=== PATIENT | female | born 1965 | race Caucasian/White ===

== ENCOUNTER 2019-12-21 08:53 | Inpatient (IN) ==
[2019-12-21] MEDS: TYLENOL 325 MG TAB PO PRN (12:55)
--- NOTE | 2019-12-21 14:43 | RAD ---
HISTORYCOUGH, CONGESTIONSTUDYCHEST, 1 VIEWCOMPARISONNoneFINDINGSHeart size and pulmonary vasculature normal. Lungs are clear with no infiltrate or significant effusion on either side. Bony thorax is unremarkable.IMPRESSIONNo acute cardiopulmonary abnormality is seen on this examElectronically signed by: MILTON CAMARILLO (Dec 21, 2019 14:43:11)
[2019-12-21] MEDS ORDERED: NS 500 ML IV 500 ML IV ONE (14:44)
[2019-12-21 14:45] LABS: BASOPHILS # (AUTO) 0.1 X10^3/uL (0.0-0.1); BASOPHILS % (AUTO) 0.6 % (0.2-1.0); EOSINOPHILS # (AUTO) 0.2 x10^3/uL (0.0-0.2); EOSINOPHILS % (AUTO) 1.3 % (0.9-2.9); HEMATOCRIT 38.7 % (36.0-47.0); LYMPHOCYTES # (AUTO) 1.8 X10^3/uL (1.3-2.9); LYMPHOCYTES % (AUTO) 10.5 % (21.0-51.0); MEAN CORPUSCULAR HEMOGLOBIN 32.3 pg (27.0-34.0); MEAN CORPUSCULAR HGB CONC 33.6 g/dL (33.0-35.0); MEAN CORPUSCULAR VOLUME 96.1 fL (80.0-100.0); MEAN PLATELET VOLUME 6.5 fL (7.4-11.0); MONOCYTES # (AUTO) 0.9 x10^3/uL (0.3-0.8); MONOCYTES % (AUTO) 4.8 % (0.0-13.0); NEUTROPHILS # (AUTO) 14.6 x10^3/uL (2.2-4.8); NEUTROPHILS % (AUTO) 82.8 % (42.0-75.0); PLATELET COUNT 290 X10^3/uL (150.0-450.0); RED BLOOD COUNT 4.03 X10^6/uL (3.5-5.4); RED CELL DISTRIBUTION WIDTH 13.6 % (11.6-16.5); WHITE BLOOD COUNT 17.6 X10^3/uL (3.6-10.0)
[2019-12-21] MEDS: NORCO 7.5/325 MG TAB PO PRN (15:02)
[2019-12-21 15:05] LABS: BAND NEUTROPHILS % 6 % (0-10); PLATELET MORPHOLOGY COMMENT NORMAL (NORMAL)
[2019-12-21 15:07] LABS: ALANINE AMINOTRANSFERASE 34 Units/L (12-78); ALBUMIN 2.2 g/dL (3.4-5.0); ALKALINE PHOSPHATASE 101 Units/L (46-116); ASPARTATE AMINO TRANSFERASE 26 Units/L (15-37); BLOOD UREA NITROGEN 17 mg/dL (7-18); CARBON DIOXIDE 29.8 mmol/L (21-32); CHLORIDE 101 mmol/L (98-107); COR CA(FOR HYPOALB) 10.4 mg/dL (8.5-10.1); COR NA(FOR HYPERGLY) 140 mmol/L (136-145); CREATININE 0.86 mg/dL (0.55-1.02); SODIUM 139 mmol/L (136-145); eGFR NON BLACK RACES > 60 (>60)
[2019-12-21] MEDS: VANCOMYCIN IV *PREMIX 1 G/200 ML BAG 1 G/200 ML PIGGYBACK IV SCH ×2 (15:07→20:44)
[2019-12-21 16:27] VITALS: BMI 46.3
[2019-12-21 19:08] LABS: BILIRUBIN,URINE NEGATIVE (NEGATIVE); BLOOD/HEMOGLOBIN,URINE 1+ (NEGATIVE); GLUCOSE, URINE NEGATIVE (NEGATIVE); KETONES,URINE NEGATIVE (NEGATIVE); LEUKOCYTE ESTERASE ,URINE NEGATIVE (NEGATIVE); NITRITES,URINE NEGATIVE (NEGATIVE); PROTEIN,URINE 1+ (NEGATIVE); UROBILINOGEN,URINE NORMAL (NORMAL)
[2019-12-21 19:17] LABS: APPEARANCE,URINE CLEAR (CLEAR); BACTERIA,URINE TRACE /HPF (NEGATIVE); COLOR,URINE YELLOW (YELLOW); FINE GRANULAR CASTS,URINE RARE /LPF (NEGATIVE); RBC,URINE 0-2 /HPF (0-3); SQUAMOUS EPITHELIAL CELL,UR FEW /HPF (NEGATIVE)
[2019-12-21] MEDS: DESYREL PO PRN (20:40)
[2019-12-21] MEDS: LIPITOR TAB 10 MG PO SCH (20:44)
[2019-12-21] MEDS: SINGULAIR TAB 10 MG PO SCH (20:44)
[2019-12-21] MEDS: BENADRYL CAP/TAB 25 MG PO PRN (20:58)
[2019-12-22 05:29] LABS: BASOPHILS # (AUTO) 0.1 X10^3/uL (0.0-0.1); BASOPHILS % (AUTO) 0.5 % (0.2-1.0); EOSINOPHILS # (AUTO) 0.4 x10^3/uL (0.0-0.2); EOSINOPHILS % (AUTO) 2.3 % (0.9-2.9); HEMATOCRIT 38.4 % (36.0-47.0); HEMOGLOBIN 12.6 g/dL (12.0-16.0); LYMPHOCYTES # (AUTO) 2.1 X10^3/uL (1.3-2.9); LYMPHOCYTES % (AUTO) 13.2 % (21.0-51.0); MEAN CORPUSCULAR HEMOGLOBIN 32.1 pg (27.0-34.0); MEAN CORPUSCULAR HGB CONC 32.9 g/dL (33.0-35.0); MEAN CORPUSCULAR VOLUME 97.7 fL (80.0-100.0); MEAN PLATELET VOLUME 6.9 fL (7.4-11.0); MONOCYTES % (AUTO) 6.3 % (0.0-13.0); NEUTROPHILS # (AUTO) 12.2 x10^3/uL (2.2-4.8); NEUTROPHILS % (AUTO) 77.7 % (42.0-75.0); PLATELET COUNT 304 X10^3/uL (150.0-450.0); RED BLOOD COUNT 3.93 X10^6/uL (3.5-5.4); RED CELL DISTRIBUTION WIDTH 13.5 % (11.6-16.5); WHITE BLOOD COUNT 15.6 X10^3/uL (3.6-10.0)
[2019-12-22 05:45] LABS: ALANINE AMINOTRANSFERASE 36 Units/L (12-78); ALBUMIN 2.2 g/dL (3.4-5.0); ALKALINE PHOSPHATASE 99 Units/L (46-116); ASPARTATE AMINO TRANSFERASE 21 Units/L (15-37); BLOOD UREA NITROGEN 13 mg/dL (7-18); CALCIUM 8.7 mg/dL (8.5-10.1); CARBON DIOXIDE 31.9 mmol/L (21-32); CHLORIDE 103 mmol/L (98-107); COR CA(FOR HYPOALB) 10.1 mg/dL (8.5-10.1); CREATININE 0.63 mg/dL (0.55-1.02); SODIUM 140 mmol/L (136-145); TOTAL PROTEIN 6.9 g/dL (6.4-8.2); eGFR NON BLACK RACES > 60 (>60)
[2019-12-22] MEDS: SYNTHROID 125 mcg TAB PO SCH (06:02)
[2019-12-22 06:19] LABS: PLATELET MORPHOLOGY COMMENT NORMAL (NORMAL)
--- NOTE | 2019-12-22 09:03 | DR.PROGNOT ---
Hospital Progress Notes - Progress Note for Day of: Progress Note Date: 12/22/19 - Chief Complaint Chief Complaint: c/o pain Lt lower extremitiy . swelling and erythema is subsiding slowly . - Past Medical Family Social History Past Med/Fam/Surg Hx: No changes since H&P Allergies: Allergies Penicillins Allergy (Mild, Verified 12/21/19 12:13) shellfish derived Allergy (Verified 12/21/19 12:14) Sulfa (Sulfonamide Antibiotics) [SULFA] Allergy (Verified 12/21/19 12:13) - Review Of Systems ROS: No change since H&P - Vital Signs Vital Signs: Temperature 98.3 F Pulse Rate [Right Brachial] 79 Respiratory Rate 20 Blood Pressure [Right Arm] 134/71 O2 Sat by Pulse Oximetry 96 - Physical Exam Oriented: Normal Eyes: Normal Ear: Normal Nose: Normal Throat: Normal Respiratory: Normal Cardiovascular: Normal : Normal GI:Auscultation: Normal GI:Palpation: Normal GI: Tenderness: Normal Skin: Other (cellulitis LLE is subsiding slowly with several small blisters on the lateral and posterior aspect .) Speech Pattern: Clear, Appropriate - Laboratory and Diagnostics Result Diagrams: 12/22/19 04:39 12/22/19 04:39 Labs: Laboratory WBC 15.6 X10^3/uL (3.6-10.0) H 12/22/19 04:39 RBC 3.93 X10^6/uL (3.5-5.4) 12/22/19 04:39 Hgb 12.6 g/dL (12.0-16.0) 12/22/19 04:39 Hct 38.4 % (36.0-47.0) 12/22/19 04:39 MCV 97.7 fL (80.0-100.0) 12/22/19 04:39 MCH 32.1 pg (27.0-34.0) 12/22/19 04:39 MCHC 32.9 g/dL (33.0-35.0) L 12/22/19 04:39 RDW 13.5 % (11.6-16.5) 12/22/19 04:39 Plt Count 304 X10^3/uL (150.0-450.0) 12/22/19 04:39 Plt Count Comment Adequate (ADEQUATE) 12/22/19 04:39 MPV 6.9 fL (7.4-11.0) L 12/22/19 04:39 Neut % (Auto) 77.7 % (42.0-75.0) H 12/22/19 04:39 Lymph % (Auto) 13.2 % (21.0-51.0) L 12/22/19 04:39 [place] % (Auto) 6.3 % (0.0-13.0) 12/22/19 04:39 Eos % (Auto) 2.3 % (0.9-2.9) 12/22/19 04:39 Baso % (Auto) 0.5 % (0.2-1.0) 12/22/19 04:39 Neut # (Auto) 12.2 x10^3/uL (2.2-4.8) H 12/22/19 04:39 Lymph # (Auto) 2.1 X10^3/uL (1.3-2.9) 12/22/19 04:39 [place] # (Auto) 1.0 x10^3/uL (0.3-0.8) H 12/22/19 04:39 Eos # (Auto) 0.4 x10^3/uL (0.0-0.2) H 12/22/19 04:39 Baso # (Auto) 0.1 X10^3/uL (0.0-0.1) 12/22/19 04:39 Absolute Nucleated RBC 0.1 /100WBC 12/22/19 04:39 Total Counted 100 12/22/19 04:39 Neutrophils % (Manual) 67 % (39-76) 12/22/19 04:39 Band Neutrophils % 6 % (0-10) 12/21/19 14:35 Lymphocytes % (Manual) 23 % (13-43) 12/22/19 04:39 Monocytes % (Manual) 7 % (4-9) 12/22/19 04:39 Eosinophils % (Manual) 3 % (0-6) 12/22/19 04:39 Plt Morphology Comment Normal (NORMAL) 12/22/19 04:39 RBC Morphology Normal (NORMAL) 12/22/19 04:39 Sodium 140 mmol/L (136-145) 12/22/19 04:39 Corrected Sodium TNP 12/22/19 04:39 Potassium 3.7 mmol/L (3.5-5.1) 12/22/19 04:39 Chloride 103 mmol/L (98-107) 12/22/19 04:39 Carbon Dioxide 31.9 mmol/L (21-32) 12/22/19 04:39 BUN 13 mg/dL (7-18) 12/22/19 04:39 Creatinine 0.63 mg/dL (0.55-1.02) 12/22/19 04:39 Est GFR (MDRD) Af Amer > 60 (>60) 12/22/19 04:39 Est GFR (MDRD) Non-Af > 60 (>60) 12/22/19 04:39 Glucose 105 mg/dL (65-99) H 12/22/19 04:39 Calcium 8.7 mg/dL (8.5-10.1) 12/22/19 04:39 Corrected Calcium 10.1 mg/dL (8.5-10.1) 12/22/19 04:39 Total Bilirubin 0.30 mg/dL (0.2-1.0) 12/22/19 04:39 AST 21 Units/L (15-37) 12/22/19 04:39 ALT 36 Units/L (12-78) 12/22/19 04:39 Alkaline Phosphatase 99 Units/L (46-116) 12/22/19 04:39 Total Protein 6.9 g/dL (6.4-8.2) 12/22/19 04:39 Albumin 2.2 g/dL (3.4-5.0) L 12/22/19 04:39 Globulin 4.7 g/dL (2.5-4.5) H 12/22/19 04:39 Albumin/Globulin Ratio 0.5 Ratio (1.1-2.1) L 12/22/19 04:39 TSH 3rd Generation 2.000 uIU/mL (0.358-3.74) 12/21/19 14:35 Specimen Type Clean catch urine 12/21/19 18:56 Urine Color Yellow (YELLOW) 12/21/19 18:56 Urine Appearance Clear (CLEAR) 12/21/19 18:56 Urine pH 5.0 (5.0 - 8.0) 12/21/19 18:56 Ur Specific [place] 1.015 (1.000-1.030) 12/21/19 18:56 Urine Protein 1+ (NEGATIVE) 12/21/19 18:56 Urine Glucose (UA) Negative (NEGATIVE) 12/21/19 18:56 Urine Ketones Negative (NEGATIVE) 12/21/19 18:56 Urine Occult Blood 1+ (NEGATIVE) 12/21/19 18:56 Urine Nitrite Negative (NEGATIVE) 12/21/19 18:56 Urine Bilirubin Negative (NEGATIVE) 12/21/19 18:56 Urine Urobilinogen Normal (NORMAL) 12/21/19 18:56 Ur Leukocyte Esterase Negative (NEGATIVE) 12/21/19 18:56 Urine RBC 0-2 /HPF (0-3) 12/21/19 18:56 Urine WBC 0-2 /HPF (0-5) 12/21/19 18:56 Ur Squamous Epith Cells Few /HPF (NEGATIVE) 12/21/19 18:56 Urine Bacteria Trace /HPF (NEGATIVE) 12/21/19 18:56 Fine Granular Casts Rare /LPF (NEGATIVE) 12/21/19 18:56 Ur Culture Indicated? No/not indicated 12/21/19 18:56 - Assessment and Plan 1: cellulitis LLE with blisters , erythema , edema . obesity . old injury Lt leg .arthritis. hyhpothyroidism . GISSEL . same ATB , leg elevation .
[2019-12-22] MEDS: CALAN SR 240 MG PO SCH (09:48)
[2019-12-22] MEDS: NORCO 7.5/325 MG TAB PO PRN (09:48)
[2019-12-22] MEDS: ZESTRIL TAB 10 MG PO SCH (09:48)
[2019-12-22] MEDS: VANCOMYCIN IV *PREMIX 1 G/200 ML BAG 1 G/200 ML PIGGYBACK IV SCH ×2 (09:49→20:57)
[2019-12-22] MEDS: LOVENOX INJ 40 MG SYR SC SCH (09:49)
[2019-12-22] MEDS: LIPITOR TAB 10 MG PO SCH (20:20)
[2019-12-22] MEDS: TYLENOL 325 MG TAB PO PRN (20:20)
[2019-12-22] MEDS: SINGULAIR TAB 10 MG PO SCH (20:20)
[2019-12-22] MEDS ORDERED: PHARMACY COMMENT IV NR (20:30)
[2019-12-22 20:39] LABS: CREATININE 0.83 mg/dL (0.55-1.02)
[2019-12-22] MEDS: DESYREL PO PRN (20:57)
[2019-12-23 05:24] LABS: BASOPHILS # (AUTO) 0.1 X10^3/uL (0.0-0.1); BASOPHILS % (AUTO) 0.6 % (0.2-1.0); EOSINOPHILS # (AUTO) 0.4 x10^3/uL (0.0-0.2); EOSINOPHILS % (AUTO) 2.7 % (0.9-2.9); HEMATOCRIT 39.2 % (36.0-47.0); HEMOGLOBIN 13.1 g/dL (12.0-16.0); LYMPHOCYTES # (AUTO) 2.1 X10^3/uL (1.3-2.9); LYMPHOCYTES % (AUTO) 16.2 % (21.0-51.0); MEAN CORPUSCULAR HEMOGLOBIN 32.6 pg (27.0-34.0); MEAN CORPUSCULAR HGB CONC 33.3 g/dL (33.0-35.0); MEAN CORPUSCULAR VOLUME 97.7 fL (80.0-100.0); MEAN PLATELET VOLUME 6.8 fL (7.4-11.0); MONOCYTES # (AUTO) 0.7 x10^3/uL (0.3-0.8); MONOCYTES % (AUTO) 5.4 % (0.0-13.0); NEUTROPHILS # (AUTO) 9.9 x10^3/uL (2.2-4.8); NEUTROPHILS % (AUTO) 75.1 % (42.0-75.0); PLATELET COUNT 330 X10^3/uL (150.0-450.0); RED BLOOD COUNT 4.01 X10^6/uL (3.5-5.4); RED CELL DISTRIBUTION WIDTH 13.3 % (11.6-16.5); WHITE BLOOD COUNT 13.2 X10^3/uL (3.6-10.0)
[2019-12-23 05:36] LABS: ALANINE AMINOTRANSFERASE 33 Units/L (12-78); ALBUMIN 2.3 g/dL (3.4-5.0); ALKALINE PHOSPHATASE 90 Units/L (46-116); ASPARTATE AMINO TRANSFERASE 18 Units/L (15-37); BLOOD UREA NITROGEN 10 mg/dL (7-18); CALCIUM 8.8 mg/dL (8.5-10.1); CHLORIDE 105 mmol/L (98-107); COR CA(FOR HYPOALB) 10.2 mg/dL (8.5-10.1); CREATININE 0.58 mg/dL (0.55-1.02); SODIUM 142 mmol/L (136-145); eGFR NON BLACK RACES > 60 (>60)
[2019-12-23 05:46] LABS: PLATELET MORPHOLOGY COMMENT NORMAL (NORMAL)
[2019-12-23] MEDS: SYNTHROID 125 mcg TAB PO SCH (06:19)
[2019-12-23] MEDS: CALAN SR 240 MG PO SCH (09:03)
[2019-12-23] MEDS: LOVENOX INJ 40 MG SYR SC SCH (09:04)
[2019-12-23] MEDS: ZESTRIL TAB 10 MG PO SCH (09:04)
[2019-12-23] MEDS: VANCOMYCIN IV *PREMIX 1 G/200 ML BAG 1 G/200 ML PIGGYBACK IV SCH ×2 (09:05→21:26)
--- NOTE | 2019-12-23 11:46 | DR.PROGNOT ---
Hospital Progress Notes - Progress Note for Day of: Progress Note Date: 12/23/19 - Chief Complaint Chief Complaint: still c/o pain Lt lower extremitiy with multiple bliters on the medial and upper lower leg . WBC 13.2 w shift . BS 110 . no chest pain or palpitation . no fever . - Past Medical Family Social History Past Med/Fam/Surg Hx: No changes since H&P Allergies: Allergies Penicillins Allergy (Mild, Verified 12/21/19 12:13) peanut Allergy (Verified 12/22/19 17:52) shellfish derived Allergy (Verified 12/21/19 12:14) Sulfa (Sulfonamide Antibiotics) [SULFA] Allergy (Verified 12/21/19 12:13) - Review Of Systems ROS: No change since H&P - Vital Signs Vital Signs: Temperature 97.8 F Pulse Rate [Right Brachial] 61 Respiratory Rate 20 Blood Pressure [Right Arm] 157/73 O2 Sat by Pulse Oximetry 94 - Physical Exam Oriented: Normal Eyes: Normal Ear: Normal Nose: Normal Throat: Normal Respiratory: Normal Cardiovascular: Normal : Normal GI:Auscultation: Normal GI:Palpation: Normal GI: Tenderness: Normal Skin: Other (cellulitis LLE is subsiding slowly with several blisters on the medial and posterior aspect .) Speech Pattern: Clear, Appropriate - Laboratory and Diagnostics Result Diagrams: 12/23/19 04:45 12/23/19 04:45 Labs: Laboratory WBC 13.2 X10^3/uL (3.6-10.0) H 12/23/19 04:45 RBC 4.01 X10^6/uL (3.5-5.4) 12/23/19 04:45 Hgb 13.1 g/dL (12.0-16.0) 12/23/19 04:45 Hct 39.2 % (36.0-47.0) 12/23/19 04:45 MCV 97.7 fL (80.0-100.0) 12/23/19 04:45 MCH 32.6 pg (27.0-34.0) 12/23/19 04:45 MCHC 33.3 g/dL (33.0-35.0) 12/23/19 04:45 RDW 13.3 % (11.6-16.5) 12/23/19 04:45 Plt Count 330 X10^3/uL (150.0-450.0) 12/23/19 04:45 Plt Count Comment Adequate (ADEQUATE) 12/23/19 04:45 MPV 6.8 fL (7.4-11.0) L 12/23/19 04:45 Neut % (Auto) 75.1 % (42.0-75.0) H 12/23/19 04:45 Lymph % (Auto) 16.2 % (21.0-51.0) L 12/23/19 04:45 [place] % (Auto) 5.4 % (0.0-13.0) 12/23/19 04:45 Eos % (Auto) 2.7 % (0.9-2.9) 12/23/19 04:45 Baso % (Auto) 0.6 % (0.2-1.0) 12/23/19 04:45 Neut # (Auto) 9.9 x10^3/uL (2.2-4.8) H 12/23/19 04:45 Lymph # (Auto) 2.1 X10^3/uL (1.3-2.9) 12/23/19 04:45 [place] # (Auto) 0.7 x10^3/uL (0.3-0.8) 12/23/19 04:45 Eos # (Auto) 0.4 x10^3/uL (0.0-0.2) H 12/23/19 04:45 Baso # (Auto) 0.1 X10^3/uL (0.0-0.1) 12/23/19 04:45 Absolute Nucleated RBC 0.1 /100WBC 12/23/19 04:45 Total Counted 100 12/23/19 04:45 Neutrophils % (Manual) 72 % (39-76) 12/23/19 04:45 Band Neutrophils % 6 % (0-10) 12/21/19 14:35 Lymphocytes % (Manual) 23 % (13-43) 12/23/19 04:45 Monocytes % (Manual) 5 % (4-9) 12/23/19 04:45 Eosinophils % (Manual) 3 % (0-6) 12/22/19 04:39 Plt Morphology Comment Normal (NORMAL) 12/23/19 04:45 RBC Morphology Normal (NORMAL) 12/23/19 04:45 Sodium 142 mmol/L (136-145) 12/23/19 04:45 Corrected Sodium TNP 12/23/19 04:45 Potassium 3.8 mmol/L (3.5-5.1) 12/23/19 04:45 Chloride 105 mmol/L (98-107) 12/23/19 04:45 Carbon Dioxide 31.0 mmol/L (21-32) 12/23/19 04:45 BUN 10 mg/dL (7-18) 12/23/19 04:45 Creatinine 0.58 mg/dL (0.55-1.02) 12/23/19 04:45 Est GFR (MDRD) Af Amer > 60 (>60) 12/23/19 04:45 Est GFR (MDRD) Non-Af > 60 (>60) 12/23/19 04:45 Glucose 110 mg/dL (65-99) H 12/23/19 04:45 Calcium 8.8 mg/dL (8.5-10.1) 12/23/19 04:45 Corrected Calcium 10.2 mg/dL (8.5-10.1) H 12/23/19 04:45 Total Bilirubin 0.30 mg/dL (0.2-1.0) 12/23/19 04:45 AST 18 Units/L (15-37) 12/23/19 04:45 ALT 33 Units/L (12-78) 12/23/19 04:45 Alkaline Phosphatase 90 Units/L (46-116) 12/23/19 04:45 Total Protein 7.0 g/dL (6.4-8.2) 12/23/19 04:45 Albumin 2.3 g/dL (3.4-5.0) L 12/23/19 04:45 Globulin 4.7 g/dL (2.5-4.5) H 12/23/19 04:45 Albumin/Globulin Ratio 0.5 Ratio (1.1-2.1) L 12/23/19 04:45 TSH 3rd Generation 2.000 uIU/mL (0.358-3.74) 12/21/19 14:35 Specimen Type Clean catch urine 12/21/19 18:56 Urine Color Yellow (YELLOW) 12/21/19 18:56 Urine Appearance Clear (CLEAR) 12/21/19 18:56 Urine pH 5.0 (5.0 - 8.0) 12/21/19 18:56 Ur Specific [place] 1.015 (1.000-1.030) 12/21/19 18:56 Urine Protein 1+ (NEGATIVE) 12/21/19 18:56 Urine Glucose (UA) Negative (NEGATIVE) 12/21/19 18:56 Urine Ketones Negative (NEGATIVE) 12/21/19 18:56 Urine Occult Blood 1+ (NEGATIVE) 12/21/19 18:56 Urine Nitrite Negative (NEGATIVE) 12/21/19 18:56 Urine Bilirubin Negative (NEGATIVE) 12/21/19 18:56 Urine Urobilinogen Normal (NORMAL) 12/21/19 18:56 Ur Leukocyte Esterase Negative (NEGATIVE) 12/21/19 18:56 Urine RBC 0-2 /HPF (0-3) 12/21/19 18:56 Urine WBC 0-2 /HPF (0-5) 12/21/19 18:56 Ur Squamous Epith Cells Few /HPF (NEGATIVE) 12/21/19 18:56 Urine Bacteria Trace /HPF (NEGATIVE) 12/21/19 18:56 Fine Granular Casts Rare /LPF (NEGATIVE) 12/21/19 18:56 Ur Culture Indicated? No/not indicated 12/21/19 18:56 Vancomycin Trough 14.0 ug/mL (15-20) L 12/22/19 20:08 - Assessment and Plan 1: cellulitis LLE with blisters , erythema , edema . obesity . old injury Lt leg .arthritis. hyhpothyroidism . GISSEL . same ATB , leg elevation . may shower and ambulate .
[2019-12-23] MEDS: NORCO 7.5/325 MG TAB PO PRN ×2 (12:45→22:57)
[2019-12-23] MEDS: BENADRYL CAP/TAB 25 MG PO PRN (12:45)
[2019-12-23] MEDS: LIPITOR TAB 10 MG PO SCH (21:26)
[2019-12-23] MEDS: SINGULAIR TAB 10 MG PO SCH (21:26)
[2019-12-23] MEDS: DESYREL PO PRN (21:27)
[2019-12-24 05:16] LABS: BASOPHILS # (AUTO) 0.1 X10^3/uL (0.0-0.1); BASOPHILS % (AUTO) 0.7 % (0.2-1.0); EOSINOPHILS # (AUTO) 0.3 x10^3/uL (0.0-0.2); EOSINOPHILS % (AUTO) 2.1 % (0.9-2.9); HEMATOCRIT 38.1 % (36.0-47.0); HEMOGLOBIN 12.5 g/dL (12.0-16.0); LYMPHOCYTES # (AUTO) 1.9 X10^3/uL (1.3-2.9); LYMPHOCYTES % (AUTO) 15.9 % (21.0-51.0); MEAN CORPUSCULAR HEMOGLOBIN 32.1 pg (27.0-34.0); MEAN CORPUSCULAR HGB CONC 32.8 g/dL (33.0-35.0); MEAN CORPUSCULAR VOLUME 97.8 fL (80.0-100.0); MEAN PLATELET VOLUME 6.6 fL (7.4-11.0); MONOCYTES # (AUTO) 0.8 x10^3/uL (0.3-0.8); MONOCYTES % (AUTO) 6.6 % (0.0-13.0); NEUTROPHILS # (AUTO) 8.9 x10^3/uL (2.2-4.8); NEUTROPHILS % (AUTO) 74.7 % (42.0-75.0); PLATELET COUNT 336 X10^3/uL (150.0-450.0); RED CELL DISTRIBUTION WIDTH 13.5 % (11.6-16.5)
[2019-12-24 05:30] LABS: ALANINE AMINOTRANSFERASE 26 Units/L (12-78); ALBUMIN 2.1 g/dL (3.4-5.0); ALKALINE PHOSPHATASE 79 Units/L (46-116); ASPARTATE AMINO TRANSFERASE 17 Units/L (15-37); BLOOD UREA NITROGEN 11 mg/dL (7-18); CALCIUM 8.5 mg/dL (8.5-10.1); CARBON DIOXIDE 31.2 mmol/L (21-32); CHLORIDE 106 mmol/L (98-107); CREATININE 0.69 mg/dL (0.55-1.02); SODIUM 142 mmol/L (136-145); TOTAL PROTEIN 6.6 g/dL (6.4-8.2); eGFR NON BLACK RACES > 60 (>60)
[2019-12-24] MEDS: SYNTHROID 125 mcg TAB PO SCH (05:37)
[2019-12-24 05:39] LABS: BAND NEUTROPHILS % 4 % (0-10); PLATELET MORPHOLOGY COMMENT NORMAL (NORMAL)
[2019-12-24 08:58] LABS: CREATININE 0.74 mg/dL (0.55-1.02); VANCOMYCIN,TROUGH 15.4 ug/mL (15-20)
[2019-12-24] MEDS: VANCOMYCIN IV *PREMIX 1 G/200 ML BAG 1 G/200 ML PIGGYBACK IV SCH ×2 (09:34→21:21)
[2019-12-24] MEDS: LOVENOX INJ 40 MG SYR SC SCH (09:34)
[2019-12-24] MEDS: CALAN SR 240 MG PO SCH (09:34)
[2019-12-24] MEDS: ZESTRIL TAB 10 MG PO SCH (09:35)
[2019-12-24] MEDS: TYLENOL 325 MG TAB PO PRN (09:40)
[2019-12-24] MEDS ORDERED: SILVADENE TOP SCH (13:00)
--- NOTE | 2019-12-24 13:22 | VAS ---
HISTORY:Cellulitis, blistersStudy: Venous DopplerComparison:NoneTECHNIQUE: Multiple porter scale and color flow Doppler images of the deep venous system were obtained of the bilateral lower extremitiesFINDINGS:There is normal respiratory phasicity, compression and augmentation of the extremity veins without evidence of acute DVT .IMPRESSION:1. Negative for DVT.Electronically signed by: REJI NORIEGA (Dec 24, 2019 13:20:49)
[2019-12-24] MEDS: BACTROBAN TOPICAL OINT TOP SCH ×2 (14:59→21:20)
--- NOTE | 2019-12-24 16:09 | DR.PROGNOT ---
Hospital Progress Notes - Progress Note for Day of: Progress Note Date: 12/24/19 - Chief Complaint Chief Complaint: having drainage from several blisters on the posterior and lateral Lt leg. still c/o pain when getting OOB and ambulating . W@BC 12. CMP normal ..TSH 2. temp. 97.9 - Past Medical Family Social History Past Med/Fam/Surg Hx: No changes since H&P Allergies: Allergies Penicillins Allergy (Mild, Verified 12/21/19 12:13) peanut Allergy (Verified 12/22/19 17:52) shellfish derived Allergy (Verified 12/21/19 12:14) Sulfa (Sulfonamide Antibiotics) [SULFA] Allergy (Verified 12/21/19 12:13) - Review Of Systems ROS: No change since H&P - Vital Signs Vital Signs: Temperature 97.9 F Pulse Rate [Right Brachial] 62 Respiratory Rate 20 Blood Pressure [Right Arm] 127/70 O2 Sat by Pulse Oximetry 95 - Physical Exam Oriented: Normal Eyes: Normal Ear: Normal Nose: Normal Throat: Normal Respiratory: Normal Cardiovascular: Normal : Normal GI:Auscultation: Normal GI:Palpation: Normal GI: Tenderness: Normal Skin: Other (Lt leg with open blisters posterior and lateral aspect and associated erythema around the blisters and foot ) Speech Pattern: Clear, Appropriate - Laboratory and Diagnostics Result Diagrams: 12/24/19 04:30 12/24/19 08:39 Labs: 12/23/19 22:46 Leg - Right Gram Stain - Final Laboratory WBC 12.0 X10^3/uL (3.6-10.0) H 12/24/19 04:30 RBC 3.90 X10^6/uL (3.5-5.4) 12/24/19 04:30 Hgb 12.5 g/dL (12.0-16.0) 12/24/19 04:30 Hct 38.1 % (36.0-47.0) 12/24/19 04:30 MCV 97.8 fL (80.0-100.0) 12/24/19 04:30 MCH 32.1 pg (27.0-34.0) 12/24/19 04:30 MCHC 32.8 g/dL (33.0-35.0) L 12/24/19 04:30 RDW 13.5 % (11.6-16.5) 12/24/19 04:30 Plt Count 336 X10^3/uL (150.0-450.0) 12/24/19 04:30 Plt Count Comment Adequate (ADEQUATE) 12/24/19 04:30 MPV 6.6 fL (7.4-11.0) L 12/24/19 04:30 Neut % (Auto) 74.7 % (42.0-75.0) 12/24/19 04:30 Lymph % (Auto) 15.9 % (21.0-51.0) L 12/24/19 04:30 [place] % (Auto) 6.6 % (0.0-13.0) 12/24/19 04:30 Eos % (Auto) 2.1 % (0.9-2.9) 12/24/19 04:30 Baso % (Auto) 0.7 % (0.2-1.0) 12/24/19 04:30 Neut # (Auto) 8.9 x10^3/uL (2.2-4.8) H 12/24/19 04:30 Lymph # (Auto) 1.9 X10^3/uL (1.3-2.9) 12/24/19 04:30 [place] # (Auto) 0.8 x10^3/uL (0.3-0.8) 12/24/19 04:30 Eos # (Auto) 0.3 x10^3/uL (0.0-0.2) H 12/24/19 04:30 Baso # (Auto) 0.1 X10^3/uL (0.0-0.1) 12/24/19 04:30 Absolute Nucleated RBC 0.0 /100WBC 12/24/19 04:30 Total Counted 100 12/24/19 04:30 Neutrophils % (Manual) 70 % (39-76) 12/24/19 04:30 Band Neutrophils % 4 % (0-10) 12/24/19 04:30 Lymphocytes % (Manual) 18 % (13-43) 12/24/19 04:30 Monocytes % (Manual) 6 % (4-9) 12/24/19 04:30 Eosinophils % (Manual) 2 % (0-6) 12/24/19 04:30 Plt Morphology Comment Normal (NORMAL) 12/24/19 04:30 RBC Morphology Normal (NORMAL) 12/24/19 04:30 Sodium 142 mmol/L (136-145) 12/24/19 04:30 Corrected Sodium TNP 12/24/19 04:30 Potassium 4.0 mmol/L (3.5-5.1) 12/24/19 04:30 Chloride 106 mmol/L (98-107) 12/24/19 04:30 Carbon Dioxide 31.2 mmol/L (21-32) 12/24/19 04:30 BUN 11 mg/dL (7-18) 12/24/19 04:30 Creatinine 0.74 mg/dL (0.55-1.02) 12/24/19 08:39 Est GFR (MDRD) Af Amer > 60 (>60) 12/24/19 04:30 Est GFR (MDRD) Non-Af > 60 (>60) 12/24/19 04:30 Glucose 99 mg/dL (65-99) 12/24/19 04:30 Calcium 8.5 mg/dL (8.5-10.1) 12/24/19 04:30 Corrected Calcium 10.0 mg/dL (8.5-10.1) 12/24/19 04:30 Total Bilirubin 0.20 mg/dL (0.2-1.0) 12/24/19 04:30 AST 17 Units/L (15-37) 12/24/19 04:30 ALT 26 Units/L (12-78) 12/24/19 04:30 Alkaline Phosphatase 79 Units/L (46-116) 12/24/19 04:30 Total Protein 6.6 g/dL (6.4-8.2) 12/24/19 04:30 Albumin 2.1 g/dL (3.4-5.0) L 12/24/19 04:30 Globulin 4.5 g/dL (2.5-4.5) 12/24/19 04:30 Albumin/Globulin Ratio 0.5 Ratio (1.1-2.1) L 12/24/19 04:30 TSH 3rd Generation 2.000 uIU/mL (0.358-3.74) 12/21/19 14:35 Specimen Type Clean catch urine 12/21/19 18:56 Urine Color Yellow (YELLOW) 12/21/19 18:56 Urine Appearance Clear (CLEAR) 12/21/19 18:56 Urine pH 5.0 (5.0 - 8.0) 12/21/19 18:56 Ur Specific [place] 1.015 (1.000-1.030) 12/21/19 18:56 Urine Protein 1+ (NEGATIVE) 12/21/19 18:56 Urine Glucose (UA) Negative (NEGATIVE) 12/21/19 18:56 Urine Ketones Negative (NEGATIVE) 12/21/19 18:56 Urine Occult Blood 1+ (NEGATIVE) 12/21/19 18:56 Urine Nitrite Negative (NEGATIVE) 12/21/19 18:56 Urine Bilirubin Negative (NEGATIVE) 12/21/19 18:56 Urine Urobilinogen Normal (NORMAL) 12/21/19 18:56 Ur Leukocyte Esterase Negative (NEGATIVE) 12/21/19 18:56 Urine RBC 0-2 /HPF (0-3) 12/21/19 18:56 Urine WBC 0-2 /HPF (0-5) 12/21/19 18:56 Ur Squamous Epith Cells Few /HPF (NEGATIVE) 12/21/19 18:56 Urine Bacteria Trace /HPF (NEGATIVE) 12/21/19 18:56 Fine Granular Casts Rare /LPF (NEGATIVE) 12/21/19 18:56 Ur Culture Indicated? No/not indicated 12/21/19 18:56 Vancomycin Trough 15.4 ug/mL (15-20) 12/24/19 08:39 - Assessment and Plan 1: cellulitis LLE with blisters , erythema and edema .. arthritic Lt ankle with deformity. hyhpothyroidism . obesity and GISSEL . same ATB , leg elevation . may shower and ambulate .
[2019-12-24] MEDS: NORCO 7.5/325 MG TAB PO PRN (16:26)
[2019-12-24] MEDS: BENADRYL CAP/TAB 25 MG PO PRN (17:19)
[2019-12-24] MEDS: SINGULAIR TAB 10 MG PO SCH (21:21)
[2019-12-24] MEDS: LIPITOR TAB 10 MG PO SCH (21:21)
[2019-12-24] MEDS: DESYREL PO PRN (21:22)
[2019-12-25 05:00] LABS: BASOPHILS # (AUTO) 0.1 X10^3/uL (0.0-0.1); BASOPHILS % (AUTO) 0.6 % (0.2-1.0); EOSINOPHILS # (AUTO) 0.2 x10^3/uL (0.0-0.2); EOSINOPHILS % (AUTO) 1.6 % (0.9-2.9); HEMATOCRIT 38.9 % (36.0-47.0); LYMPHOCYTES # (AUTO) 1.5 X10^3/uL (1.3-2.9); LYMPHOCYTES % (AUTO) 12.9 % (21.0-51.0); MEAN CORPUSCULAR HEMOGLOBIN 32.4 pg (27.0-34.0); MEAN CORPUSCULAR HGB CONC 33.4 g/dL (33.0-35.0); MEAN CORPUSCULAR VOLUME 97.1 fL (80.0-100.0); MONOCYTES # (AUTO) 0.7 x10^3/uL (0.3-0.8); MONOCYTES % (AUTO) 6.1 % (0.0-13.0); NEUTROPHILS # (AUTO) 9.1 x10^3/uL (2.2-4.8); NEUTROPHILS % (AUTO) 78.8 % (42.0-75.0); PLATELET COUNT 329 X10^3/uL (150.0-450.0); RED CELL DISTRIBUTION WIDTH 13.5 % (11.6-16.5); WHITE BLOOD COUNT 11.5 X10^3/uL (3.6-10.0)
[2019-12-25 05:26] LABS: ALANINE AMINOTRANSFERASE 47 Units/L (12-78); ALBUMIN 2.4 g/dL (3.4-5.0); ALKALINE PHOSPHATASE 83 Units/L (46-116); ASPARTATE AMINO TRANSFERASE 42 Units/L (15-37); BLOOD UREA NITROGEN 13 mg/dL (7-18); CALCIUM 8.8 mg/dL (8.5-10.1); CARBON DIOXIDE 31.7 mmol/L (21-32); CHLORIDE 106 mmol/L (98-107); COR CA(FOR HYPOALB) 10.1 mg/dL (8.5-10.1); CREATININE 0.73 mg/dL (0.55-1.02); SODIUM 141 mmol/L (136-145); TSH (3RD GENERATION) 6.042 uIU/mL (0.358-3.74); eGFR NON BLACK RACES > 60 (>60)
[2019-12-25] MEDS: SYNTHROID 125 mcg TAB PO SCH (05:43)
[2019-12-25 06:17] LABS: PLATELET MORPHOLOGY COMMENT NORMAL (NORMAL)
[2019-12-25] MEDS: CALAN SR 240 MG PO SCH (08:37)
[2019-12-25] MEDS: BACTROBAN TOPICAL OINT TOP SCH ×2 (08:37→21:36)
[2019-12-25] MEDS: VANCOMYCIN IV *PREMIX 1 G/200 ML BAG 1 G/200 ML PIGGYBACK IV SCH ×2 (08:38→21:36)
[2019-12-25] MEDS: ZESTRIL TAB 10 MG PO SCH (08:38)
[2019-12-25] MEDS: LOVENOX INJ 40 MG SYR SC SCH (10:03)
--- NOTE | 2019-12-25 10:59 | DR.PROGNOT ---
Hospital Progress Notes - Progress Note for Day of: Progress Note Date: 12/25/19 - Chief Complaint Chief Complaint: having serous drainage from several blisters on the posterior and lateral LT leg. still c/o pain and pressure feeling .. though the erythema started to localize around the blisters . WBC 11.5.. TSH 6.04 .. Vanco trough 14. Doppler was negative for DVT. cultures are negative so far . temp 98 - Past Medical Family Social History Past Med/Fam/Surg Hx: No changes since H&P Allergies: Allergies Penicillins Allergy (Mild, Verified 12/21/19 12:13) peanut Allergy (Verified 12/22/19 17:52) shellfish derived Allergy (Verified 12/21/19 12:14) Sulfa (Sulfonamide Antibiotics) [SULFA] Allergy (Verified 12/21/19 12:13) - Review Of Systems ROS: No change since H&P - Vital Signs Vital Signs: Temperature 98.4 F Pulse Rate [Right Brachial] 64 Respiratory Rate 20 Blood Pressure [Right Arm] 174/87 O2 Sat by Pulse Oximetry 97 - Physical Exam Oriented: Normal Eyes: Normal Ear: Normal Nose: Normal Throat: Normal Respiratory: Normal Cardiovascular: Normal : Normal GI:Auscultation: Normal GI:Palpation: Normal GI: Tenderness: Normal Skin: Other (Lt leg with open blisters posterior and lateral aspect and associated erythema around the blisters and foot ) Speech Pattern: Clear, Appropriate - Laboratory and Diagnostics Result Diagrams: 12/25/19 04:36 12/25/19 04:36 Labs: 12/23/19 22:46 Leg - Right Gram Stain - Final Laboratory WBC 11.5 X10^3/uL (3.6-10.0) H 12/25/19 04:36 RBC 4.00 X10^6/uL (3.5-5.4) 12/25/19 04:36 Hgb 13.0 g/dL (12.0-16.0) 12/25/19 04:36 Hct 38.9 % (36.0-47.0) 12/25/19 04:36 MCV 97.1 fL (80.0-100.0) 12/25/19 04:36 MCH 32.4 pg (27.0-34.0) 12/25/19 04:36 MCHC 33.4 g/dL (33.0-35.0) 12/25/19 04:36 RDW 13.5 % (11.6-16.5) 12/25/19 04:36 Plt Count 329 X10^3/uL (150.0-450.0) 12/25/19 04:36 Plt Count Comment Adequate (ADEQUATE) 12/25/19 04:36 MPV 6.0 fL (7.4-11.0) L 12/25/19 04:36 Neut % (Auto) 78.8 % (42.0-75.0) H 12/25/19 04:36 Lymph % (Auto) 12.9 % (21.0-51.0) L 12/25/19 04:36 [place] % (Auto) 6.1 % (0.0-13.0) 12/25/19 04:36 Eos % (Auto) 1.6 % (0.9-2.9) 12/25/19 04:36 Baso % (Auto) 0.6 % (0.2-1.0) 12/25/19 04:36 Neut # (Auto) 9.1 x10^3/uL (2.2-4.8) H 12/25/19 04:36 Lymph # (Auto) 1.5 X10^3/uL (1.3-2.9) 12/25/19 04:36 [place] # (Auto) 0.7 x10^3/uL (0.3-0.8) 12/25/19 04:36 Eos # (Auto) 0.2 x10^3/uL (0.0-0.2) 12/25/19 04:36 Baso # (Auto) 0.1 X10^3/uL (0.0-0.1) 12/25/19 04:36 Absolute Nucleated RBC 0.0 /100WBC 12/25/19 04:36 Total Counted 100 12/25/19 04:36 Neutrophils % (Manual) 75 % (39-76) 12/25/19 04:36 Band Neutrophils % 4 % (0-10) 12/24/19 04:30 Lymphocytes % (Manual) 19 % (13-43) 12/25/19 04:36 Monocytes % (Manual) 4 % (4-9) 12/25/19 04:36 Eosinophils % (Manual) 2 % (0-6) 12/25/19 04:36 Plt Morphology Comment Normal (NORMAL) 12/25/19 04:36 RBC Morphology Normal (NORMAL) 12/25/19 04:36 Sodium 141 mmol/L (136-145) 12/25/19 04:36 Corrected Sodium TNP 12/25/19 04:36 Potassium 4.7 mmol/L (3.5-5.1) 12/25/19 04:36 Chloride 106 mmol/L (98-107) 12/25/19 04:36 Carbon Dioxide 31.7 mmol/L (21-32) 12/25/19 04:36 BUN 13 mg/dL (7-18) 12/25/19 04:36 Creatinine 0.73 mg/dL (0.55-1.02) 12/25/19 04:36 Est GFR (MDRD) Af Amer > 60 (>60) 12/25/19 04:36 Est GFR (MDRD) Non-Af > 60 (>60) 12/25/19 04:36 Glucose 110 mg/dL (65-99) H 12/25/19 04:36 Calcium 8.8 mg/dL (8.5-10.1) 12/25/19 04:36 Corrected Calcium 10.1 mg/dL (8.5-10.1) 12/25/19 04:36 Total Bilirubin 0.20 mg/dL (0.2-1.0) 12/25/19 04:36 AST 42 Units/L (15-37) H 12/25/19 04:36 ALT 47 Units/L (12-78) 12/25/19 04:36 Alkaline Phosphatase 83 Units/L (46-116) 12/25/19 04:36 Total Protein 7.0 g/dL (6.4-8.2) 12/25/19 04:36 Albumin 2.4 g/dL (3.4-5.0) L 12/25/19 04:36 Globulin 4.6 g/dL (2.5-4.5) H 12/25/19 04:36 Albumin/Globulin Ratio 0.5 Ratio (1.1-2.1) L 12/25/19 04:36 TSH 3rd Generation 6.042 uIU/mL (0.358-3.74) H 12/25/19 04:36 Specimen Type Clean catch urine 12/21/19 18:56 Urine Color Yellow (YELLOW) 12/21/19 18:56 Urine Appearance Clear (CLEAR) 12/21/19 18:56 Urine pH 5.0 (5.0 - 8.0) 12/21/19 18:56 Ur Specific [place] 1.015 (1.000-1.030) 12/21/19 18:56 Urine Protein 1+ (NEGATIVE) 12/21/19 18:56 Urine Glucose (UA) Negative (NEGATIVE) 12/21/19 18:56 Urine Ketones Negative (NEGATIVE) 12/21/19 18:56 Urine Occult Blood 1+ (NEGATIVE) 12/21/19 18:56 Urine Nitrite Negative (NEGATIVE) 12/21/19 18:56 Urine Bilirubin Negative (NEGATIVE) 12/21/19 18:56 Urine Urobilinogen Normal (NORMAL) 12/21/19 18:56 Ur Leukocyte Esterase Negative (NEGATIVE) 12/21/19 18:56 Urine RBC 0-2 /HPF (0-3) 12/21/19 18:56 Urine WBC 0-2 /HPF (0-5) 12/21/19 18:56 Ur Squamous Epith Cells Few /HPF (NEGATIVE) 12/21/19 18:56 Urine Bacteria Trace /HPF (NEGATIVE) 12/21/19 18:56 Fine Granular Casts Rare /LPF (NEGATIVE) 12/21/19 18:56 Ur Culture Indicated? No/not indicated 12/21/19 18:56 Vancomycin Trough 15.4 ug/mL (15-20) 12/24/19 08:39 - Assessment and Plan 1: cellulitis LLE with blisters , erythema and edema .. 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 hyhpothyroidism . obesity and GISSEL . same local care and ATB . leg elevation . DVT prophylaxis. may shower and ambulate .
[2019-12-25] MEDS ORDERED: HYDROCORTISONE CRM 1% TOP PRN (13:48)
[2019-12-25] MEDS: NORCO 7.5/325 MG TAB PO PRN (13:57)
[2019-12-25 21:15] LABS: CREATININE 0.8 mg/dL (0.55-1.02); VANCOMYCIN,TROUGH 14.7 ug/mL (15-20)
[2019-12-25] MEDS: SINGULAIR TAB 10 MG PO SCH (21:36)
[2019-12-25] MEDS: LIPITOR TAB 10 MG PO SCH (21:36)
[2019-12-25] MEDS: DESYREL PO PRN (21:36)
[2019-12-26 05:31] LABS: BASOPHILS % (AUTO) 0.4 % (0.2-1.0); EOSINOPHILS # (AUTO) 0.2 x10^3/uL (0.0-0.2); EOSINOPHILS % (AUTO) 1.5 % (0.9-2.9); HEMATOCRIT 37.8 % (36.0-47.0); HEMOGLOBIN 12.3 g/dL (12.0-16.0); LYMPHOCYTES # (AUTO) 1.6 X10^3/uL (1.3-2.9); LYMPHOCYTES % (AUTO) 14.1 % (21.0-51.0); MEAN CORPUSCULAR HEMOGLOBIN 31.9 pg (27.0-34.0); MEAN CORPUSCULAR HGB CONC 32.6 g/dL (33.0-35.0); MEAN CORPUSCULAR VOLUME 97.9 fL (80.0-100.0); MEAN PLATELET VOLUME 6.5 fL (7.4-11.0); MONOCYTES # (AUTO) 0.7 x10^3/uL (0.3-0.8); MONOCYTES % (AUTO) 5.9 % (0.0-13.0); NEUTROPHILS % (AUTO) 78.1 % (42.0-75.0); PLATELET COUNT 335 X10^3/uL (150.0-450.0); RED BLOOD COUNT 3.86 X10^6/uL (3.5-5.4); RED CELL DISTRIBUTION WIDTH 13.2 % (11.6-16.5); WHITE BLOOD COUNT 11.5 X10^3/uL (3.6-10.0)
[2019-12-26] MEDS: SYNTHROID 125 mcg TAB PO SCH (05:34)
[2019-12-26 05:55] LABS: ALANINE AMINOTRANSFERASE 66 Units/L (12-78); ALBUMIN 2.3 g/dL (3.4-5.0); ALKALINE PHOSPHATASE 78 Units/L (46-116); ASPARTATE AMINO TRANSFERASE 54 Units/L (15-37); BLOOD UREA NITROGEN 11 mg/dL (7-18); CALCIUM 8.7 mg/dL (8.5-10.1); CARBON DIOXIDE 29.5 mmol/L (21-32); CHLORIDE 106 mmol/L (98-107); COR CA(FOR HYPOALB) 10.1 mg/dL (8.5-10.1); CREATININE 0.61 mg/dL (0.55-1.02); SODIUM 141 mmol/L (136-145); TOTAL PROTEIN 6.7 g/dL (6.4-8.2); eGFR NON BLACK RACES > 60 (>60)
[2019-12-26 06:31] LABS: PLATELET MORPHOLOGY COMMENT NORMAL (NORMAL)
[2019-12-26] MEDS: VANCOMYCIN IV *PREMIX 1 G/200 ML BAG 1 G/200 ML PIGGYBACK IV SCH ×2 (09:00→21:16)
[2019-12-26] MEDS: BACTROBAN TOPICAL OINT TOP SCH ×2 (09:00→21:15)
[2019-12-26] MEDS: CALAN SR 240 MG PO SCH (09:00)
[2019-12-26] MEDS: LOVENOX INJ 40 MG SYR SC SCH (09:01)
[2019-12-26] MEDS: ZESTRIL TAB 10 MG PO SCH (09:02)
[2019-12-26] MEDS: LIPITOR TAB 10 MG PO SCH (21:16)
[2019-12-26] MEDS: SINGULAIR TAB 10 MG PO SCH (21:16)
[2019-12-26] MEDS: DESYREL PO PRN (21:16)
[2019-12-26] MEDS: NORCO 7.5/325 MG TAB PO PRN (21:17)
[2019-12-26] MEDS ORDERED: NS 500 ML IV 500 ML IV PRN (23:30)
[2019-12-26] MEDS ORDERED: NS 500 ML IV 500 ML IV ONE (23:32)
[2019-12-27 05:07] LABS: BASOPHILS # (AUTO) 0.1 X10^3/uL (0.0-0.1); BASOPHILS % (AUTO) 0.6 % (0.2-1.0); EOSINOPHILS # (AUTO) 0.1 x10^3/uL (0.0-0.2); EOSINOPHILS % (AUTO) 1.4 % (0.9-2.9); HEMATOCRIT 37.7 % (36.0-47.0); HEMOGLOBIN 12.4 g/dL (12.0-16.0); LYMPHOCYTES # (AUTO) 1.7 X10^3/uL (1.3-2.9); LYMPHOCYTES % (AUTO) 16.9 % (21.0-51.0); MEAN CORPUSCULAR HEMOGLOBIN 32.3 pg (27.0-34.0); MEAN CORPUSCULAR HGB CONC 32.9 g/dL (33.0-35.0); MEAN PLATELET VOLUME 6.5 fL (7.4-11.0); MONOCYTES # (AUTO) 0.7 x10^3/uL (0.3-0.8); MONOCYTES % (AUTO) 6.9 % (0.0-13.0); NEUTROPHILS # (AUTO) 7.4 x10^3/uL (2.2-4.8); NEUTROPHILS % (AUTO) 74.2 % (42.0-75.0); PLATELET COUNT 322 X10^3/uL (150.0-450.0); RED BLOOD COUNT 3.85 X10^6/uL (3.5-5.4); RED CELL DISTRIBUTION WIDTH 13.2 % (11.6-16.5)
[2019-12-27 05:17] LABS: ALANINE AMINOTRANSFERASE 93 Units/L (12-78); ALBUMIN 2.4 g/dL (3.4-5.0); ALKALINE PHOSPHATASE 78 Units/L (46-116); ASPARTATE AMINO TRANSFERASE 70 Units/L (15-37); BLOOD UREA NITROGEN 11 mg/dL (7-18); CALCIUM 8.8 mg/dL (8.5-10.1); CARBON DIOXIDE 31.5 mmol/L (21-32); CHLORIDE 106 mmol/L (98-107); COR CA(FOR HYPOALB) 10.1 mg/dL (8.5-10.1); CREATININE 0.71 mg/dL (0.55-1.02); SODIUM 142 mmol/L (136-145); TOTAL PROTEIN 6.9 g/dL (6.4-8.2); eGFR NON BLACK RACES > 60 (>60)
[2019-12-27] MEDS: SYNTHROID 125 mcg TAB PO SCH (06:09)
[2019-12-27 06:32] LABS: PLATELET MORPHOLOGY COMMENT NORMAL (NORMAL)
[2019-12-27] MEDS: CALAN SR 240 MG PO SCH (08:27)
[2019-12-27] MEDS: LOVENOX INJ 40 MG SYR SC SCH (08:27)
[2019-12-27] MEDS: BACTROBAN TOPICAL OINT TOP SCH ×2 (08:27→21:37)
[2019-12-27] MEDS: ZESTRIL TAB 10 MG PO SCH (08:28)
[2019-12-27] MEDS: VANCOMYCIN IV *PREMIX 1 G/200 ML BAG 1 G/200 ML PIGGYBACK IV SCH ×2 (08:28→21:39)
--- NOTE | 2019-12-27 11:09 | PCM.PROG ---
Progress Note - Progress Note for Day of Date of Exam: 12/26/19 - Subjective Subjective: IS BEING TREATED FOR LEFT LOWER EXTREMITY CELLULITIS. REDNESS AND PAIN APPARENTLY STARTED ABOUT A WEEK AGO. APPARENTLY, REDNESS INITIALLY INVOLVED THE ENTIRE LEG, FROM THE ANKLE TO THE GROIN. TODAY, REDNESS AND SWELLING IS FROM THE KNEE TO THE MID CALF AREA. ARE OF CONCERN IS BRIGHT RED. SHE IS NOTED TO HAVE MULTIPLE BLISTERS ON THE LEG THIS MORNING THAT ARE NOT YET DRAINAGE. MULTIPLE AREAS ARE ALSO NOTED THAT HAVE ALREADY BEEN DRAINING. HER PRIMARY CARE PHYSICIAN HAD STARTED HER ON ORAL ANTIBIOTICS PRIOR TO BEING REFERRED TO GENERAL SURGERY, HOWEVER, ERYTHEMA AND SWELLING CONTINUED TO WORSEN. A VENOUS DOPPLER WAS OBTAINED ON ADMISSION AND WAS NEGATIVE FOR DVT. HER VITALS THIS MORNING ARE: 98.1-70-22-97%-178/94. LABS WERE OBTAINED. ABNORMAL LAB VALUES INCLUDE THE FOLLOWING: WBC 11.5, GLUCOSE 107, AST 54, CRP 14.30, ALBUMIN 2.3. SHE IS CURRENTLY RECEIVING NS AT [facility], VANCOMYCIN 1G IV Q12H, LOVENOX 40MG SC DAILY, AND HER HOME MEDICATIONS WERE RESUMED. WE WILL CONTINUE WITH CURRENT PLAN OF CARE TODAY. , GENERAL SURGEON WILL CONTINUE TO MONITOR PATIENT WELL. OTHERWISE, WE WILL FOLLOW UP WITH AM LABS AND CONTINUE TO MONITOR. - Past Medical Family Social History Past Med/Fam/Surg Hx: No changes since H&P Allergies: Allergies Penicillins Allergy (Mild, Verified 12/21/19 12:13) peanut Allergy (Verified 12/22/19 17:52) shellfish derived Allergy (Verified 12/21/19 12:14) Sulfa (Sulfonamide Antibiotics) [SULFA] Allergy (Verified 12/21/19 12:13) - Review of Systems ROS: No change since H&P - Vital Signs and I&O's Vital Signs: Temperature 98.3 F Pulse Rate [Right Brachial] 64 Respiratory Rate 20 Blood Pressure [Right Arm] 144/66 O2 Sat by Pulse Oximetry 96 Intake and Output: Intake & Output 12/24/19 12/25/19 12/26/19 12/27/19 11:59 11:59 11:59 11:59 Intake Total 2840 / 2840 2290 / 2290 1935 / 1935 3575 / 3575 Balance 2840 / 2840 2290 / 2290 1935 / 1935 3575 / 3575 - Physical Exam Oriented: Normal Eyes: Normal Ear: Normal Nose: Normal Throat: Normal Respiratory: Normal Cardiovascular: Normal : Normal Auscultation: Bowel Sounds: Normal Palpation: Normal Tenderness: Normal Skin: Other (Lt leg with open blisters posterior and lateral aspect and associated erythema around the blisters and foot ) Musculoskeletal: Normal Psychiatric: Normal Mood Description: Calm Speech Pattern: Clear, Appropriate - Laboratory and Diagnostics Result Diagrams: 12/27/19 04:15 12/27/19 04:15 Labs: 12/23/19 22:46 Leg - Right Gram Stain - Final 12/23/19 22:46 Leg - Right Wound Culture - Final Laboratory WBC 10.0 X10^3/uL (3.6-10.0) 12/27/19 04:15 RBC 3.85 X10^6/uL (3.5-5.4) 12/27/19 04:15 Hgb 12.4 g/dL (12.0-16.0) 12/27/19 04:15 Hct 37.7 % (36.0-47.0) 12/27/19 04:15 MCV 98.0 fL (80.0-100.0) 12/27/19 04:15 MCH 32.3 pg (27.0-34.0) 12/27/19 04:15 MCHC 32.9 g/dL (33.0-35.0) L 12/27/19 04:15 RDW 13.2 % (11.6-16.5) 12/27/19 04:15 Plt Count 322 X10^3/uL (150.0-450.0) 12/27/19 04:15 Plt Count Comment Adequate (ADEQUATE) 12/27/19 04:15 MPV 6.5 fL (7.4-11.0) L 12/27/19 04:15 Neut % (Auto) 74.2 % (42.0-75.0) 12/27/19 04:15 Lymph % (Auto) 16.9 % (21.0-51.0) L 12/27/19 04:15 [place] % (Auto) 6.9 % (0.0-13.0) 12/27/19 04:15 Eos % (Auto) 1.4 % (0.9-2.9) 12/27/19 04:15 Baso % (Auto) 0.6 % (0.2-1.0) 12/27/19 04:15 Neut # (Auto) 7.4 x10^3/uL (2.2-4.8) H 12/27/19 04:15 Lymph # (Auto) 1.7 X10^3/uL (1.3-2.9) 12/27/19 04:15 [place] # (Auto) 0.7 x10^3/uL (0.3-0.8) 12/27/19 04:15 Eos # (Auto) 0.1 x10^3/uL (0.0-0.2) 12/27/19 04:15 Baso # (Auto) 0.1 X10^3/uL (0.0-0.1) 12/27/19 04:15 Absolute Nucleated RBC 0.0 /100WBC 12/27/19 04:15 Total Counted 100 12/27/19 04:15 Neutrophils % (Manual) 70 % (39-76) 12/27/19 04:15 Band Neutrophils % 4 % (0-10) 12/24/19 04:30 Lymphocytes % (Manual) 21 % (13-43) 12/27/19 04:15 Monocytes % (Manual) 6 % (4-9) 12/27/19 04:15 Eosinophils % (Manual) 3 % (0-6) 12/27/19 04:15 Plt Morphology Comment Normal (NORMAL) 12/27/19 04:15 RBC Morphology Normal (NORMAL) 12/27/19 04:15 Sodium 142 mmol/L (136-145) 12/27/19 04:15 Corrected Sodium TNP 12/27/19 04:15 Potassium 4.4 mmol/L (3.5-5.1) 12/27/19 04:15 Chloride 106 mmol/L (98-107) 12/27/19 04:15 Carbon Dioxide 31.5 mmol/L (21-32) 12/27/19 04:15 BUN 11 mg/dL (7-18) 12/27/19 04:15 Creatinine 0.71 mg/dL (0.55-1.02) 12/27/19 04:15 Est GFR (MDRD) Af Amer > 60 (>60) 12/27/19 04:15 Est GFR (MDRD) Non-Af > 60 (>60) 12/27/19 04:15 Glucose 102 mg/dL (65-99) H 12/27/19 04:15 Calcium 8.8 mg/dL (8.5-10.1) 12/27/19 04:15 Corrected Calcium 10.1 mg/dL (8.5-10.1) 12/27/19 04:15 Total Bilirubin 0.30 mg/dL (0.2-1.0) 12/27/19 04:15 AST 70 Units/L (15-37) H 12/27/19 04:15 ALT 93 Units/L (12-78) H 12/27/19 04:15 Alkaline Phosphatase 78 Units/L (46-116) 12/27/19 04:15 C-Reactive Protein 10.60 mg/L (0-3.0) H 12/27/19 04:15 Total Protein 6.9 g/dL (6.4-8.2) 12/27/19 04:15 Albumin 2.4 g/dL (3.4-5.0) L 12/27/19 04:15 Globulin 4.5 g/dL (2.5-4.5) 12/27/19 04:15 Albumin/Globulin Ratio 0.5 Ratio (1.1-2.1) L 12/27/19 04:15 TSH 3rd Generation 6.042 uIU/mL (0.358-3.74) H 12/25/19 04:36 Specimen Type Clean catch urine 12/21/19 18:56 Urine Color Yellow (YELLOW) 12/21/19 18:56 Urine Appearance Clear (CLEAR) 12/21/19 18:56 Urine pH 5.0 (5.0 - 8.0) 12/21/19 18:56 Ur Specific [place] 1.015 (1.000-1.030) 12/21/19 18:56 Urine Protein 1+ (NEGATIVE) 12/21/19 18:56 Urine Glucose (UA) Negative (NEGATIVE) 12/21/19 18:56 Urine Ketones Negative (NEGATIVE) 12/21/19 18:56 Urine Occult Blood 1+ (NEGATIVE) 12/21/19 18:56 Urine Nitrite Negative (NEGATIVE) 12/21/19 18:56 Urine Bilirubin Negative (NEGATIVE) 12/21/19 18:56 Urine Urobilinogen Normal (NORMAL) 12/21/19 18:56 Ur Leukocyte Esterase Negative (NEGATIVE) 12/21/19 18:56 Urine RBC 0-2 /HPF (0-3) 12/21/19 18:56 Urine WBC 0-2 /HPF (0-5) 12/21/19 18:56 Ur Squamous Epith Cells Few /HPF (NEGATIVE) 12/21/19 18:56 Urine Bacteria Trace /HPF (NEGATIVE) 12/21/19 18:56 Fine Granular Casts Rare /LPF (NEGATIVE) 12/21/19 18:56 Ur Culture Indicated? No/not indicated 12/21/19 18:56 Vancomycin Trough 14.7 ug/mL (15-20) L 12/25/19 20:25 - Plan (1) Lower extremity cellulitis Status: Acute Qualifiers: Laterality: left Qualified Code(s): L03.116 - Cellulitis of left lower limb Plan: NS AT [facility], VANCOMYCIN 1G IV Q12H, LOVENOX 40MG SC DAILY, AND HER HOME MEDICATIONS WERE RESUMED
--- NOTE | 2019-12-27 11:20 | PCM.PROG ---
Progress Note - Progress Note for Day of Date of Exam: 12/27/19 - Subjective Subjective: WAS ADMITTED BY , GENERAL SURGEON, FOR TREATMENT OF LEFT LOWER EXTREMITY CELLULITIS. REDNESS AND PAIN APPARENTLY STARTED ABOUT A WEEK AGO. APPARENTLY, REDNESS INITIALLY INVOLVED THE ENTIRE LEG, FROM THE ANKLE TO THE GROIN. TODAY, REDNESS AND SWELLING IS FROM THE KNEE TO THE MID CALF AREA. AREA OF CONCERN IS BRIGHT RED. SHE IS NOTED TO HAVE MULTIPLE BLISTERS ON THE LEG THIS MORNING THAT ARE NOT YET DRAINAGE. MULTIPLE AREAS ARE ALSO NOTED THAT HAVE ALREADY BEEN DRAINING. REDNESS DOES APPEAR TO HAVE DECREASED COMPARED TO YESTERDAY. HER PRIMARY CARE PHYSICIAN HAD STARTED HER ON ORAL ANTIBIOTICS PRIOR TO BEING REFERRED TO GENERAL SURGERY, HOWEVER, ERYTHEMA AND SWELLING CONTINUED TO WORSEN. A VENOUS DOPPLER WAS OBTAINED ON ADMISSION AND WAS NEGATIVE FOR DVT. HER VITALS THIS MORNING ARE: 98.3-64-20-96%-144/66. LABS WERE OBTAINED. ABNORMAL LAB VALUES INCLUDE THE FOLLOWING: GLUCOSE 102, AST 70, ALT 93, TOTAL PROTEIN 10.60, ALBUMIN 2.4. WOUND CULTURE IS PENDING. SHE IS CURRENTLY RECEIVING NS AT [facility], VANCOMYCIN 1G IV Q12H, LOVENOX 40MG SC DAILY, AND HER HOME MEDICATIONS WERE RESUMED. WE WILL CONTINUE WITH CURRENT PLAN OF CARE TODAY. , GENERAL SURGEON WILL CONTINUE TO MONITOR PATIENT WELL. OTHERWISE, WE WILL FOLLOW UP WITH AM LABS AND CONTINUE TO MONITOR. - Past Medical Family Social History Past Med/Fam/Surg Hx: No changes since H&P Allergies: Allergies Penicillins Allergy (Mild, Verified 12/21/19 12:13) peanut Allergy (Verified 12/22/19 17:52) shellfish derived Allergy (Verified 12/21/19 12:14) Sulfa (Sulfonamide Antibiotics) [SULFA] Allergy (Verified 12/21/19 12:13) - Review of Systems ROS: No change since H&P - Vital Signs and I&O's Vital Signs: Temperature 98.3 F Pulse Rate [Right Brachial] 64 Respiratory Rate 20 Blood Pressure [Right Arm] 144/66 O2 Sat by Pulse Oximetry 96 Intake and Output: Intake & Output 12/24/19 12/25/19 12/26/19 12/27/19 11:59 11:59 11:59 11:59 Intake Total 2840 / 2840 2290 / 2290 193 / 5 3575 / 3575 Balance 2840 / 2840 2290 / 2290 1934 / 1934 3574 / 3574 - Physical Exam Oriented: Normal Eyes: Normal Ear: Normal Nose: Normal Throat: Normal Respiratory: Normal Cardiovascular: Normal : Normal Auscultation: Bowel Sounds: Normal Palpation: Normal Tenderness: Normal Skin: Other (Lt leg with open blisters posterior and lateral aspect and associated erythema around the blisters and foot ) Musculoskeletal: Normal Psychiatric: Normal Mood Description: Calm Speech Pattern: Clear, Appropriate - Laboratory and Diagnostics Result Diagrams: 12/27/19 04:15 12/27/19 04:15 Labs: 12/23/19 22:46 Leg - Right Gram Stain - Final 12/23/19 22:46 Leg - Right Wound Culture - Final Laboratory WBC 10.0 X10^3/uL (3.6-10.0) 12/27/19 04:15 RBC 3.85 X10^6/uL (3.5-5.4) 12/27/19 04:15 Hgb 12.4 g/dL (12.0-16.0) 12/27/19 04:15 Hct 37.7 % (36.0-47.0) 12/27/19 04:15 MCV 98.0 fL (80.0-100.0) 12/27/19 04:15 MCH 32.3 pg (27.0-34.0) 12/27/19 04:15 MCHC 32.9 g/dL (33.0-35.0) L 12/27/19 04:15 RDW 13.2 % (11.6-16.5) 12/27/19 04:15 Plt Count 322 X10^3/uL (150.0-450.0) 12/27/19 04:15 Plt Count Comment Adequate (ADEQUATE) 12/27/19 04:15 MPV 6.5 fL (7.4-11.0) L 12/27/19 04:15 Neut % (Auto) 74.2 % (42.0-75.0) 12/27/19 04:15 Lymph % (Auto) 16.9 % (21.0-51.0) L 12/27/19 04:15 [place] % (Auto) 6.9 % (0.0-13.0) 12/27/19 04:15 Eos % (Auto) 1.4 % (0.9-2.9) 12/27/19 04:15 Baso % (Auto) 0.6 % (0.2-1.0) 12/27/19 04:15 Neut # (Auto) 7.4 x10^3/uL (2.2-4.8) H 12/27/19 04:15 Lymph # (Auto) 1.7 X10^3/uL (1.3-2.9) 12/27/19 04:15 [place] # (Auto) 0.7 x10^3/uL (0.3-0.8) 12/27/19 04:15 Eos # (Auto) 0.1 x10^3/uL (0.0-0.2) 12/27/19 04:15 Baso # (Auto) 0.1 X10^3/uL (0.0-0.1) 12/27/19 04:15 Absolute Nucleated RBC 0.0 /100WBC 12/27/19 04:15 Total Counted 100 12/27/19 04:15 Neutrophils % (Manual) 70 % (39-76) 12/27/19 04:15 Band Neutrophils % 4 % (0-10) 12/24/19 04:30 Lymphocytes % (Manual) 21 % (13-43) 12/27/19 04:15 Monocytes % (Manual) 6 % (4-9) 12/27/19 04:15 Eosinophils % (Manual) 3 % (0-6) 12/27/19 04:15 Plt Morphology Comment Normal (NORMAL) 12/27/19 04:15 RBC Morphology Normal (NORMAL) 12/27/19 04:15 Sodium 142 mmol/L (136-145) 12/27/19 04:15 Corrected Sodium TNP 12/27/19 04:15 Potassium 4.4 mmol/L (3.5-5.1) 12/27/19 04:15 Chloride 106 mmol/L (98-107) 12/27/19 04:15 Carbon Dioxide 31.5 mmol/L (21-32) 12/27/19 04:15 BUN 11 mg/dL (7-18) 12/27/19 04:15 Creatinine 0.71 mg/dL (0.55-1.02) 12/27/19 04:15 Est GFR (MDRD) Af Amer > 60 (>60) 12/27/19 04:15 Est GFR (MDRD) Non-Af > 60 (>60) 12/27/19 04:15 Glucose 102 mg/dL (65-99) H 12/27/19 04:15 Calcium 8.8 mg/dL (8.5-10.1) 12/27/19 04:15 Corrected Calcium 10.1 mg/dL (8.5-10.1) 12/27/19 04:15 Total Bilirubin 0.30 mg/dL (0.2-1.0) 12/27/19 04:15 AST 70 Units/L (15-37) H 12/27/19 04:15 ALT 93 Units/L (12-78) H 12/27/19 04:15 Alkaline Phosphatase 78 Units/L (46-116) 12/27/19 04:15 C-Reactive Protein 10.60 mg/L (0-3.0) H 12/27/19 04:15 Total Protein 6.9 g/dL (6.4-8.2) 12/27/19 04:15 Albumin 2.4 g/dL (3.4-5.0) L 12/27/19 04:15 Globulin 4.5 g/dL (2.5-4.5) 12/27/19 04:15 Albumin/Globulin Ratio 0.5 Ratio (1.1-2.1) L 12/27/19 04:15 TSH 3rd Generation 6.042 uIU/mL (0.358-3.74) H 12/25/19 04:36 Specimen Type Clean catch urine 12/21/19 18:56 Urine Color Yellow (YELLOW) 12/21/19 18:56 Urine Appearance Clear (CLEAR) 12/21/19 18:56 Urine pH 5.0 (5.0 - 8.0) 12/21/19 18:56 Ur Specific [place] 1.015 (1.000-1.030) 12/21/19 18:56 Urine Protein 1+ (NEGATIVE) 12/21/19 18:56 Urine Glucose (UA) Negative (NEGATIVE) 12/21/19 18:56 Urine Ketones Negative (NEGATIVE) 12/21/19 18:56 Urine Occult Blood 1+ (NEGATIVE) 12/21/19 18:56 Urine Nitrite Negative (NEGATIVE) 12/21/19 18:56 Urine Bilirubin Negative (NEGATIVE) 12/21/19 18:56 Urine Urobilinogen Normal (NORMAL) 12/21/19 18:56 Ur Leukocyte Esterase Negative (NEGATIVE) 12/21/19 18:56 Urine RBC 0-2 /HPF (0-3) 12/21/19 18:56 Urine WBC 0-2 /HPF (0-5) 12/21/19 18:56 Ur Squamous Epith Cells Few /HPF (NEGATIVE) 12/21/19 18:56 Urine Bacteria Trace /HPF (NEGATIVE) 12/21/19 18:56 Fine Granular Casts Rare /LPF (NEGATIVE) 12/21/19 18:56 Ur Culture Indicated? No/not indicated 12/21/19 18:56 Vancomycin Trough 14.7 ug/mL (15-20) L 12/25/19 20:25 - Plan (1) Lower extremity cellulitis Status: Acute Qualifiers: Laterality: left Qualified Code(s): L03.116 - Cellulitis of left lower limb Plan: NS AT [facility], VANCOMYCIN 1G IV Q12H, LOVENOX 40MG SC DAILY, AND HER HOME M EDICATIONS WERE RESUMED
[2019-12-27] MEDS: TYLENOL 325 MG TAB PO PRN (16:36)
[2019-12-27 20:52] LABS: CREATININE 0.89 mg/dL (0.55-1.02); VANCOMYCIN,TROUGH 16.7 ug/mL (15-20)
[2019-12-27] MEDS: LIPITOR TAB 10 MG PO SCH (21:38)
[2019-12-27] MEDS: SINGULAIR TAB 10 MG PO SCH (21:38)
[2019-12-27] MEDS: DESYREL PO PRN (21:38)
[2019-12-28] MEDS: SYNTHROID 125 mcg TAB PO SCH (05:46)
[2019-12-28 06:05] LABS: ALANINE AMINOTRANSFERASE 96 Units/L (12-78); ALBUMIN 2.4 g/dL (3.4-5.0); ALKALINE PHOSPHATASE 75 Units/L (46-116); ASPARTATE AMINO TRANSFERASE 56 Units/L (15-37); BLOOD UREA NITROGEN 11 mg/dL (7-18); CALCIUM 8.6 mg/dL (8.5-10.1); CARBON DIOXIDE 30.2 mmol/L (21-32); CHLORIDE 105 mmol/L (98-107); COR CA(FOR HYPOALB) 9.9 mg/dL (8.5-10.1); COR NA(FOR HYPERGLY) 140 mmol/L (136-145); CREATININE 0.73 mg/dL (0.55-1.02); SODIUM 140 mmol/L (136-145); TOTAL PROTEIN 6.8 g/dL (6.4-8.2); eGFR NON BLACK RACES > 60 (>60)
[2019-12-28 06:06] LABS: BASOPHILS # (AUTO) 0.1 X10^3/uL (0.0-0.1); BASOPHILS % (AUTO) 0.7 % (0.2-1.0); EOSINOPHILS # (AUTO) 0.2 x10^3/uL (0.0-0.2); EOSINOPHILS % (AUTO) 1.8 % (0.9-2.9); HEMATOCRIT 37.3 % (36.0-47.0); HEMOGLOBIN 12.6 g/dL (12.0-16.0); LYMPHOCYTES # (AUTO) 1.5 X10^3/uL (1.3-2.9); MEAN CORPUSCULAR HEMOGLOBIN 32.6 pg (27.0-34.0); MEAN CORPUSCULAR HGB CONC 33.8 g/dL (33.0-35.0); MEAN CORPUSCULAR VOLUME 96.6 fL (80.0-100.0); MEAN PLATELET VOLUME 6.1 fL (7.4-11.0); MONOCYTES # (AUTO) 0.5 x10^3/uL (0.3-0.8); MONOCYTES % (AUTO) 5.5 % (0.0-13.0); NEUTROPHILS # (AUTO) 6.6 x10^3/uL (2.2-4.8); PLATELET COUNT 280 X10^3/uL (150.0-450.0); RED BLOOD COUNT 3.86 X10^6/uL (3.5-5.4); RED CELL DISTRIBUTION WIDTH 13.4 % (11.6-16.5); WHITE BLOOD COUNT 8.8 X10^3/uL (3.6-10.0)
[2019-12-28] MEDS: BACTROBAN TOPICAL OINT TOP SCH ×2 (09:32→20:50)
[2019-12-28] MEDS: VANCOMYCIN IV *PREMIX 1 G/200 ML BAG 1 G/200 ML PIGGYBACK IV SCH ×2 (09:33→20:50)
[2019-12-28] MEDS: ZESTRIL TAB 10 MG PO SCH (09:33)
[2019-12-28] MEDS: LOVENOX INJ 40 MG SYR SC SCH (09:33)
[2019-12-28] MEDS: CALAN SR 240 MG PO SCH (09:33)
--- NOTE | 2019-12-28 11:32 | PCM.PROG ---
Progress Note - Progress Note for Day of Date of Exam: 12/28/19 - Subjective Subjective: WAS ADMITTED BY , GENERAL SURGEON, FOR TREATMENT OF LEFT LOWER EXTREMITY CELLULITIS. AREA OF CONCERN CONTINUES TO BE BRIGHT RED. SHE IS NOTED TO HAVE MULTIPLE BLISTERS ON THE LEG THIS MORNING THAT ARE NOT YET DRAINING. MULTIPLE AREAS ARE ALSO NOTED THAT HAVE ALREADY BEEN DRAINING. REDNESS DOES APPEAR TO HAVE DECREASED COMPARED TO YESTERDAY. A VENOUS DOPPLER WAS OBTAINED ON ADMISSION AND WAS NEGATIVE FOR DVT. HER VITALS THIS MORNING ARE: 98.2-61-18-95%-170/81. LABS WERE OBTAINED. ABNORMAL LAB VALUES INCLUDE THE FOLLOWING: GLUCOSE 118, AST 56, ALT 96, CRP 7.80, ALBUMIN 2.4. WOUND CULTURE REPORTS GROWTH OF COAGULASE NEGATIVE STAPH AT DAY 3. SHE IS CURRENTLY RECEIVING NS AT [facility], VANCOMYCIN 1G IV Q12H, LOVENOX 40MG SC DAILY, AND HER HOME MEDICATIONS WERE RESUMED. WE WILL CONTINUE WITH CURRENT PLAN OF CARE TODAY. , GENERAL SURGEON WILL CONTINUE TO MONITOR PATIENT WELL. OTHERWISE, WE WILL FOLLOW UP WITH AM LABS AND CONTINUE TO MONITOR. - Past Medical Family Social History Past Med/Fam/Surg Hx: No changes since H&P Allergies: Allergies Penicillins Allergy (Mild, Verified 12/21/19 12:13) peanut Allergy (Verified 12/22/19 17:52) shellfish derived Allergy (Verified 12/21/19 12:14) Sulfa (Sulfonamide Antibiotics) [SULFA] Allergy (Verified 12/21/19 12:13) - Review of Systems ROS: No change since H&P - Vital Signs and I&O's Vital Signs: Temperature 98.2 F Pulse Rate [Right Brachial] 61 Respiratory Rate 18 Blood Pressure [Right Arm] 196/96 O2 Sat by Pulse Oximetry 95 Intake and Output: Intake & Output 12/25/19 12/26/19 12/27/19 12/28/19 11:59 11:59 11:59 11:59 Intake Total 2290 / 2290 1935 / 1935 3575 / 3575 215 / 2150 Balance 2290 / 2290 1935 / 1935 3575 / 3575 2149 / 2149 - Physical Exam Oriented: Normal Eyes: Normal Ear: Normal Nose: Normal Throat: Normal Respiratory: Normal Cardiovascular: Normal : Normal Auscultation: Bowel Sounds: Normal Tenderness: Normal Skin: Other (Lt leg with open blisters posterior and lateral aspect and ass ociated erythema around the blisters and foot ) Musculoskeletal: Normal Psychiatric: Normal Mood Description: Calm Speech Pattern: Clear, Appropriate - Laboratory and Diagnostics Result Diagrams: 12/28/19 05:30 12/28/19 05:30 Labs: 12/23/19 22:46 Leg - Right Gram Stain - Final 12/23/19 22:46 Leg - Right Wound Culture - Final Laboratory WBC 8.8 X10^3/uL (3.6-10.0) 12/28/19 05:30 RBC 3.86 X10^6/uL (3.5-5.4) 12/28/19 05:30 Hgb 12.6 g/dL (12.0-16.0) 12/28/19 05:30 Hct 37.3 % (36.0-47.0) 12/28/19 05:30 MCV 96.6 fL (80.0-100.0) 12/28/19 05:30 MCH 32.6 pg (27.0-34.0) 12/28/19 05:30 MCHC 33.8 g/dL (33.0-35.0) 12/28/19 05:30 RDW 13.4 % (11.6-16.5) 12/28/19 05:30 Plt Count 280 X10^3/uL (150.0-450.0) 12/28/19 05:30 Plt Count Comment Adequate (ADEQUATE) 12/27/19 04:15 MPV 6.1 fL (7.4-11.0) L 12/28/19 05:30 Neut % (Auto) 75.0 % (42.0-75.0) 12/28/19 05:30 Lymph % (Auto) 17.0 % (21.0-51.0) L 12/28/19 05:30 [place] % (Auto) 5.5 % (0.0-13.0) 12/28/19 05:30 Eos % (Auto) 1.8 % (0.9-2.9) 12/28/19 05:30 Baso % (Auto) 0.7 % (0.2-1.0) 12/28/19 05:30 Neut # (Auto) 6.6 x10^3/uL (2.2-4.8) H 12/28/19 05:30 Lymph # (Auto) 1.5 X10^3/uL (1.3-2.9) 12/28/19 05:30 [place] # (Auto) 0.5 x10^3/uL (0.3-0.8) 12/28/19 05:30 Eos # (Auto) 0.2 x10^3/uL (0.0-0.2) 12/28/19 05:30 Baso # (Auto) 0.1 X10^3/uL (0.0-0.1) 12/28/19 05:30 Absolute Nucleated RBC 0.0 /100WBC 12/28/19 05:30 Total Counted 100 12/27/19 04:15 Neutrophils % (Manual) 70 % (39-76) 12/27/19 04:15 Band Neutrophils % 4 % (0-10) 12/24/19 04:30 Lymphocytes % (Manual) 21 % (13-43) 12/27/19 04:15 Monocytes % (Manual) 6 % (4-9) 12/27/19 04:15 Eosinophils % (Manual) 3 % (0-6) 12/27/19 04:15 Plt Morphology Comment Normal (NORMAL) 12/27/19 04:15 RBC Morphology Normal (NORMAL) 12/27/19 04:15 Sodium 140 mmol/L (136-145) 12/28/19 05:30 Corrected Sodium 140 mmol/L (136-145) 12/28/19 05:30 Potassium 4.6 mmol/L (3.5-5.1) 12/28/19 05:30 Chloride 105 mmol/L (98-107) 12/28/19 05:30 Carbon Dioxide 30.2 mmol/L (21-32) 12/28/19 05:30 BUN 11 mg/dL (7-18) 12/28/19 05:30 Creatinine 0.73 mg/dL (0.55-1.02) 12/28/19 05:30 Est GFR (MDRD) Af Amer > 60 (>60) 12/28/19 05:30 Est GFR (MDRD) Non-Af > 60 (>60) 12/28/19 05:30 Glucose 118 mg/dL (65-99) H 12/28/19 05:30 Calcium 8.6 mg/dL (8.5-10.1) 12/28/19 05:30 Corrected Calcium 9.9 mg/dL (8.5-10.1) 12/28/19 05:30 Total Bilirubin 0.30 mg/dL (0.2-1.0) 12/28/19 05:30 AST 56 Units/L (15-37) H 12/28/19 05:30 ALT 96 Units/L (12-78) H 12/28/19 05:30 Alkaline Phosphatase 75 Units/L (46-116) 12/28/19 05:30 C-Reactive Protein 7.80 mg/L (0-3.0) H 12/28/19 05:30 Total Protein 6.8 g/dL (6.4-8.2) 12/28/19 05:30 Albumin 2.4 g/dL (3.4-5.0) L 12/28/19 05:30 Globulin 4.4 g/dL (2.5-4.5) 12/28/19 05:30 Albumin/Globulin Ratio 0.5 Ratio (1.1-2.1) L 12/28/19 05:30 TSH 3rd Generation 6.042 uIU/mL (0.358-3.74) H 12/25/19 04:36 Specimen Type Clean catch urine 12/21/19 18:56 Urine Color Yellow (YELLOW) 12/21/19 18:56 Urine Appearance Clear (CLEAR) 12/21/19 18:56 Urine pH 5.0 (5.0 - 8.0) 12/21/19 18:56 Ur Specific [place] 1.015 (1.000-1.030) 12/21/19 18:56 Urine Protein 1+ (NEGATIVE) 12/21/19 18:56 Urine Glucose (UA) Negative (NEGATIVE) 12/21/19 18:56 Urine Ketones Negative (NEGATIVE) 12/21/19 18:56 Urine Occult Blood 1+ (NEGATIVE) 12/21/19 18:56 Urine Nitrite Negative (NEGATIVE) 12/21/19 18:56 Urine Bilirubin Negative (NEGATIVE) 12/21/19 18:56 Urine Urobilinogen Normal (NORMAL) 12/21/19 18:56 Ur Leukocyte Esterase Negative (NEGATIVE) 12/21/19 18:56 Urine RBC 0-2 /HPF (0-3) 12/21/19 18:56 Urine WBC 0-2 /HPF (0-5) 12/21/19 18:56 Ur Squamous Epith Cells Few /HPF (NEGATIVE) 12/21/19 18:56 Urine Bacteria Trace /HPF (NEGATIVE) 12/21/19 18:56 Fine Granular Casts Rare /LPF (NEGATIVE) 12/21/19 18:56 Ur Culture Indicated? No/not indicated 12/21/19 18:56 Vancomycin Trough 16.7 ug/mL (15-20) 12/27/19 20:20 - Plan (1) Lower extremity cellulitis Status: Acute Qualifiers: Laterality: left Qualified Code(s): L03.116 - Cellulitis of left lower limb Plan: NS AT [facility], VANCOMYCIN 1G IV Q12H, LOVENOX 40MG SC DAILY, AND HER HOME MEDICATIONS WERE RESUMED
[2019-12-28] MEDS: NORCO 7.5/325 MG TAB PO PRN (13:20)
[2019-12-28] MEDS ORDERED: FLEXERIL TAB 10 MG PO PRN (15:17)
[2019-12-28] MEDS ORDERED: FLEXERIL TAB 10 MG ONE (15:20)
--- NOTE | 2019-12-28 16:03 | DR.PROGNOT ---
Hospital Progress Notes - Progress Note for Day of: Progress Note Date: 12/28/19 - Chief Complaint Chief Complaint: less pain today with multiple dense scars on the posterior and lateral Lt calf. still having serous drainage and erythema Lt lower leg . CBC normal . CRP still high 7.8 .. slight elevated LFT - Past Medical Family Social History Past Med/Fam/Surg Hx: No changes since H&P Allergies: Allergies Penicillins Allergy (Mild, Verified 12/21/19 12:13) peanut Allergy (Verified 12/22/19 17:52) shellfish derived Allergy (Verified 12/21/19 12:14) Sulfa (Sulfonamide Antibiotics) [SULFA] Allergy (Verified 12/21/19 12:13) - Review Of Systems ROS: No change since H&P - Vital Signs Vital Signs: Temperature 98.9 F Pulse Rate [Right Brachial] 66 Respiratory Rate 20 Blood Pressure [Right Arm] 190/87 O2 Sat by Pulse Oximetry 97 - Physical Exam Oriented: Normal Eyes: Normal Ear: Normal Nose: Normal Throat: Normal Respiratory: Normal Cardiovascular: Normal : Normal GI:Auscultation: Normal GI:Palpation: Normal GI: Tenderness: Normal Skin: Other (Lt leg with open blisters posterior and lateral aspect and associated erythema around the blisters and foot ) Musculoskeletal: Normal Psychiatric: Normal Mood Description: Calm Speech Pattern: Clear, Appropriate - Laboratory and Diagnostics Result Diagrams: 12/28/19 05:30 12/28/19 05:30 Labs: 12/23/19 22:46 Leg - Right Gram Stain - Final 12/23/19 22:46 Leg - Right Wound Culture - Final Laboratory WBC 8.8 X10^3/uL (3.6-10.0) 12/28/19 05:30 RBC 3.86 X10^6/uL (3.5-5.4) 12/28/19 05:30 Hgb 12.6 g/dL (12.0-16.0) 12/28/19 05:30 Hct 37.3 % (36.0-47.0) 12/28/19 05:30 MCV 96.6 fL (80.0-100.0) 12/28/19 05:30 MCH 32.6 pg (27.0-34.0) 12/28/19 05:30 MCHC 33.8 g/dL (33.0-35.0) 12/28/19 05:30 RDW 13.4 % (11.6-16.5) 12/28/19 05:30 Plt Count 280 X10^3/uL (150.0-450.0) 12/28/19 05:30 Plt Count Comment Adequate (ADEQUATE) 12/27/19 04:15 MPV 6.1 fL (7.4-11.0) L 12/28/19 05:30 Neut % (Auto) 75.0 % (42.0-75.0) 12/28/19 05:30 Lymph % (Auto) 17.0 % (21.0-51.0) L 12/28/19 05:30 [place] % (Auto) 5.5 % (0.0-13.0) 12/28/19 05:30 Eos % (Auto) 1.8 % (0.9-2.9) 12/28/19 05:30 Baso % (Auto) 0.7 % (0.2-1.0) 12/28/19 05:30 Neut # (Auto) 6.6 x10^3/uL (2.2-4.8) H 12/28/19 05:30 Lymph # (Auto) 1.5 X10^3/uL (1.3-2.9) 12/28/19 05:30 [place] # (Auto) 0.5 x10^3/uL (0.3-0.8) 12/28/19 05:30 Eos # (Auto) 0.2 x10^3/uL (0.0-0.2) 12/28/19 05:30 Baso # (Auto) 0.1 X10^3/uL (0.0-0.1) 12/28/19 05:30 Absolute Nucleated RBC 0.0 /100WBC 12/28/19 05:30 Total Counted 100 12/27/19 04:15 Neutrophils % (Manual) 70 % (39-76) 12/27/19 04:15 Band Neutrophils % 4 % (0-10) 12/24/19 04:30 Lymphocytes % (Manual) 21 % (13-43) 12/27/19 04:15 Monocytes % (Manual) 6 % (4-9) 12/27/19 04:15 Eosinophils % (Manual) 3 % (0-6) 12/27/19 04:15 Plt Morphology Comment Normal (NORMAL) 12/27/19 04:15 RBC Morphology Normal (NORMAL) 12/27/19 04:15 Sodium 140 mmol/L (136-145) 12/28/19 05:30 Corrected Sodium 140 mmol/L (136-145) 12/28/19 05:30 Potassium 4.6 mmol/L (3.5-5.1) 12/28/19 05:30 Chloride 105 mmol/L (98-107) 12/28/19 05:30 Carbon Dioxide 30.2 mmol/L (21-32) 12/28/19 05:30 BUN 11 mg/dL (7-18) 12/28/19 05:30 Creatinine 0.73 mg/dL (0.55-1.02) 12/28/19 05:30 Est GFR (MDRD) Af Amer > 60 (>60) 12/28/19 05:30 Est GFR (MDRD) Non-Af > 60 (>60) 12/28/19 05:30 Glucose 118 mg/dL (65-99) H 12/28/19 05:30 Calcium 8.6 mg/dL (8.5-10.1) 12/28/19 05:30 Corrected Calcium 9.9 mg/dL (8.5-10.1) 12/28/19 05:30 Total Bilirubin 0.30 mg/dL (0.2-1.0) 12/28/19 05:30 AST 56 Units/L (15-37) H 12/28/19 05:30 ALT 96 Units/L (12-78) H 12/28/19 05:30 Alkaline Phosphatase 75 Units/L (46-116) 12/28/19 05:30 C-Reactive Protein 7.80 mg/L (0-3.0) H 12/28/19 05:30 Total Protein 6.8 g/dL (6.4-8.2) 12/28/19 05:30 Albumin 2.4 g/dL (3.4-5.0) L 12/28/19 05:30 Globulin 4.4 g/dL (2.5-4.5) 12/28/19 05:30 Albumin/Globulin Ratio 0.5 Ratio (1.1-2.1) L 12/28/19 05:30 TSH 3rd Generation 6.042 uIU/mL (0.358-3.74) H 12/25/19 04:36 Specimen Type Clean catch urine 12/21/19 18:56 Urine Color Yellow (YELLOW) 12/21/19 18:56 Urine Appearance Clear (CLEAR) 12/21/19 18:56 Urine pH 5.0 (5.0 - 8.0) 12/21/19 18:56 Ur Specific [place] 1.015 (1.000-1.030) 12/21/19 18:56 Urine Protein 1+ (NEGATIVE) 12/21/19 18:56 Urine Glucose (UA) Negative (NEGATIVE) 12/21/19 18:56 Urine Ketones Negative (NEGATIVE) 12/21/19 18:56 Urine Occult Blood 1+ (NEGATIVE) 12/21/19 18:56 Urine Nitrite Negative (NEGATIVE) 12/21/19 18:56 Urine Bilirubin Negative (NEGATIVE) 12/21/19 18:56 Urine Urobilinogen Normal (NORMAL) 12/21/19 18:56 Ur Leukocyte Esterase Negative (NEGATIVE) 12/21/19 18:56 Urine RBC 0-2 /HPF (0-3) 12/21/19 18:56 Urine WBC 0-2 /HPF (0-5) 12/21/19 18:56 Ur Squamous Epith Cells Few /HPF (NEGATIVE) 12/21/19 18:56 Urine Bacteria Trace /HPF (NEGATIVE) 12/21/19 18:56 Fine Granular Casts Rare /LPF (NEGATIVE) 12/21/19 18:56 Ur Culture Indicated? No/not indicated 12/21/19 18:56 Vancomycin Trough 16.7 ug/mL (15-20) 12/27/19 20:20 - Assessment and Plan 1: cellulitis LLE with dense scare and erythema. 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 hyhpothyroidism . obesity and GISSEL . same local care and ATB . leg elevation .. possible D/C in am. DVT prophylaxis. may shower and ambulate . - Problem Patient Problems: Patient Problems Lower extremity cellulitis (Acute) L03.119
[2019-12-28] MEDS: LIPITOR TAB 10 MG PO SCH (20:50)
[2019-12-28] MEDS: SINGULAIR TAB 10 MG PO SCH (20:50)
[2019-12-28] MEDS: DESYREL PO PRN (20:51)
[2019-12-29 05:11] LABS: BASOPHILS # (AUTO) 0.1 X10^3/uL (0.0-0.1); BASOPHILS % (AUTO) 0.9 % (0.2-1.0); EOSINOPHILS # (AUTO) 0.2 x10^3/uL (0.0-0.2); EOSINOPHILS % (AUTO) 2.1 % (0.9-2.9); HEMATOCRIT 36.1 % (36.0-47.0); HEMOGLOBIN 12.1 g/dL (12.0-16.0); LYMPHOCYTES # (AUTO) 1.5 X10^3/uL (1.3-2.9); LYMPHOCYTES % (AUTO) 16.7 % (21.0-51.0); MEAN CORPUSCULAR HEMOGLOBIN 32.7 pg (27.0-34.0); MEAN CORPUSCULAR HGB CONC 33.5 g/dL (33.0-35.0); MEAN CORPUSCULAR VOLUME 97.6 fL (80.0-100.0); MEAN PLATELET VOLUME 6.4 fL (7.4-11.0); MONOCYTES # (AUTO) 0.7 x10^3/uL (0.3-0.8); MONOCYTES % (AUTO) 7.3 % (0.0-13.0); NEUTROPHILS # (AUTO) 6.6 x10^3/uL (2.2-4.8); PLATELET COUNT 272 X10^3/uL (150.0-450.0); RED CELL DISTRIBUTION WIDTH 13.3 % (11.6-16.5)
[2019-12-29 05:21] LABS: ALANINE AMINOTRANSFERASE 80 Units/L (12-78); ALBUMIN 2.4 g/dL (3.4-5.0); ALKALINE PHOSPHATASE 75 Units/L (46-116); ASPARTATE AMINO TRANSFERASE 36 Units/L (15-37); BLOOD UREA NITROGEN 13 mg/dL (7-18); CALCIUM 8.8 mg/dL (8.5-10.1); CARBON DIOXIDE 31.3 mmol/L (21-32); CHLORIDE 105 mmol/L (98-107); COR CA(FOR HYPOALB) 10.1 mg/dL (8.5-10.1); CREATININE 0.79 mg/dL (0.55-1.02); SODIUM 141 mmol/L (136-145); TOTAL PROTEIN 6.9 g/dL (6.4-8.2); eGFR NON BLACK RACES > 60 (>60)
[2019-12-29] MEDS: SYNTHROID 125 mcg TAB PO SCH (05:58)
[2019-12-29] MEDS: BACTROBAN TOPICAL OINT TOP SCH (08:35)
[2019-12-29] MEDS: ZESTRIL TAB 10 MG PO SCH (08:36)
[2019-12-29] MEDS: LOVENOX INJ 40 MG SYR SC SCH (08:36)
[2019-12-29] MEDS: VANCOMYCIN IV *PREMIX 1 G/200 ML BAG 1 G/200 ML PIGGYBACK IV SCH (08:36)
[2019-12-29] MEDS: CALAN SR 240 MG PO SCH (08:38)
[2019-12-29 12:26] VITALS: BP 137/84
== END 2019-12-29 12:30 | disposition home health service (06) | DRG 603 ==
LOC: MED/SURG 11:19
PROVIDERS: ADMIT Surgery; ATTEND Surgery
DX: J45.909 Unspecified asthma, uncomplicated; E03.8 Other specified hypothyroidism; E66.9 Obesity, unspecified; R60.0 Localized edema; R26.89 Other abnormalities of gait and mobility; L03.116 Cellulitis of left lower limb; M25.872 Other specified joint disorders, left ankle and foot; G47.33 Obstructive sleep apnea (adult) (pediatric); E78.2 Mixed hyperlipidemia